=== PATIENT | male | born 1940 | race Caucasian/White ===

== ENCOUNTER 2017-09-20 11:55 | Outpatient (CLI) | payer MEDICARE, OTHER, SELFPAY ==
[2017-09-20 12:24] LABS: Abs Immature Grans 0.02 k/cumm (0.0-0.09); Absolute Basophil Count 0.05 k/cumm (0.0-0.2); Absolute Eosinophil Count 0.03 k/cumm (0.0-0.7); Absolute Lymphocyte Count 1.72 k/cumm (1.2-3.4); Absolute Monocyte Count 1.19 k/cumm (0.11-0.7); Absolute Neutrophil Count 5.34 k/cumm (1.2-6.7); Basophils % 0.6; Eosinophils % 0.4; HCT 42.9 % (40.0-50.0); HGB 14.4 g/dL (13.5-17.5); Immature Grans % 0.2; Lymphocytes % 20.6; Mean Corp. HGB Concentration 33.6 g/dL (32.0-36.0); Mean Corpuscular Hemoglobin 31.8 pg (27.0-33.0); Mean Corpuscular Volume 94.7 fL (80-95); Mean Platelet Volume 9.2 fL (8.0-11.0); Monocytes % 14.3; Neutrophils % 63.9; Platelet Count 299 x1000/uL (130-400); RBC 4.53 m/cumm (4.50-6.00); RBC Distribution Width 16.8 % (11.8-14.1); White Blood Cell Count 8.35 k/cumm (4.4-10.8)
[2017-09-20 12:36] LABS: ALT 23 U/L (12-78); AST 13 U/L (15-37); Albumin 3.5 g/dL (3.4-5.0); Alkaline Phosphatase 108 U/L (46-116); Anion Gap 9.5 mmol/L (3-11); BUN 20 mg/dL (7-18); Bilirubin, Total 0.4 mg/dL (0.2-1.0); CO2 26.5 mmol/L (21.0-32.0); CREATININE 0.96 mg/dL (0.70-1.30); Calcium 8.9 mg/dL (8.5-10.1); Chloride 99 mmol/L (98-107); Glucose 280 mg/dL (70-100); Potassium 4.4 mmol/L (3.5-5.1); Sodium 135 mmol/L (136-145); Total Protein 7.8 g/dL (6.4-8.2)
[2017-10-16 14:58] LABS: Indication for Study See Comments
[2017-10-16 15:01] LABS: BCR-ABL1 p210 FusionTranscript See Comments
[2017-10-16 15:05] LABS: BCR-ABL1 Interpretation See Comments
[2017-10-16 15:07] LABS: Limitations and Disclaimers See Comments
== END 2017-09-20 11:56 ==
PROVIDERS: PCP Internal Medicine; Visit Provider Internal Medicine Hematology & Oncology
DX: C92.10 Chronic myeloid leukemia, BCR/ABL-positive, not having achieved remission (principal)
CPT/HCPCS: 36415; 80053; 81206; 85025

== ENCOUNTER 2017-11-28 13:27 | Outpatient (CLI) | payer MEDICARE, OTHER, SELFPAY ==
[2017-11-28 13:53] LABS: Abs Immature Grans 0.02 k/cumm (0.0-0.09); Absolute Basophil Count 0.02 k/cumm (0.0-0.2); Absolute Eosinophil Count 0.02 k/cumm (0.0-0.7); Absolute Lymphocyte Count 1.73 k/cumm (1.2-3.4); Absolute Monocyte Count 1.45 k/cumm (0.11-0.7); Absolute Neutrophil Count 7.45 k/cumm (1.2-6.7); Basophils % 0.2; Eosinophils % 0.2; HCT 40.3 % (40.0-50.0); HGB 13.1 g/dL (13.5-17.5); Immature Grans % 0.2; Lymphocytes % 16.2; Mean Corp. HGB Concentration 32.5 g/dL (32.0-36.0); Mean Corpuscular Hemoglobin 31.7 pg (27.0-33.0); Mean Corpuscular Volume 97.6 fL (80-95); Mean Platelet Volume 8.9 fL (8.0-11.0); Monocytes % 13.6; Neutrophils % 69.6; Platelet Count 341 x1000/uL (130-400); RBC 4.13 m/cumm (4.50-6.00); RBC Distribution Width 15.1 % (11.8-14.1); White Blood Cell Count 10.69 k/cumm (4.4-10.8)
[2017-11-28 14:04] LABS: ALT 25 U/L (12-78); AST 18 U/L (15-37); Albumin 3.2 g/dL (3.4-5.0); Alkaline Phosphatase 92 U/L (46-116); Anion Gap 9.4 mmol/L (3-11); BUN 18 mg/dL (7-18); Bilirubin, Total 0.5 mg/dL (0.2-1.0); CO2 26.6 mmol/L (21.0-32.0); CREATININE 0.98 mg/dL (0.70-1.30); Calcium 9.2 mg/dL (8.5-10.1); Chloride 99 mmol/L (98-107); Glucose 204 mg/dL (70-100); Sodium 135 mmol/L (136-145); Total Protein 7.7 g/dL (6.4-8.2)
[2017-11-30 15:39] LABS: BCR/ABL1, p210 Result see interpretation; Specimen Type EDTA WHOLE BLOOD
== END 2017-11-28 13:47 ==
PROVIDERS: PCP Internal Medicine; Visit Provider Internal Medicine Hematology & Oncology
DX: C92.10 Chronic myeloid leukemia, BCR/ABL-positive, not having achieved remission (principal)
CPT/HCPCS: 36415; 80053; 81206; 85025

== ENCOUNTER 2018-01-16 13:05 | Outpatient (CLI) | payer MEDICARE, OTHER, SELFPAY ==
[2018-01-16 13:35] LABS: Abs Immature Grans 0.02 k/cumm (0.0-0.09); Absolute Basophil Count 0.04 k/cumm (0.0-0.2); Absolute Eosinophil Count 0.06 k/cumm (0.0-0.7); Absolute Lymphocyte Count 1.65 k/cumm (1.2-3.4); Absolute Monocyte Count 1.21 k/cumm (0.11-0.7); Absolute Neutrophil Count 5.22 k/cumm (1.2-6.7); Basophils % 0.5; Eosinophils % 0.7; HCT 42.1 % (40.0-50.0); HGB 13.6 g/dL (13.5-17.5); Immature Grans % 0.2; Lymphocytes % 20.1; Mean Corp. HGB Concentration 32.3 g/dL (32.0-36.0); Mean Corpuscular Hemoglobin 31.6 pg (27.0-33.0); Mean Corpuscular Volume 97.9 fL (80-95); Mean Platelet Volume 9.2 fL (8.0-11.0); Monocytes % 14.8; Neutrophils % 63.7; Platelet Count 360 x1000/uL (130-400); RBC Distribution Width 15.8 % (11.8-14.1)
[2018-01-16 13:50] LABS: ALT 28 U/L (12-78); AST 17 U/L (15-37); Albumin 3.3 g/dL (3.4-5.0); Alkaline Phosphatase 119 U/L (46-116); Anion Gap 10.7 mmol/L (3-11); BUN 18 mg/dL (7-18); Bilirubin, Total 0.4 mg/dL (0.2-1.0); CO2 26.3 mmol/L (21.0-32.0); CREATININE 0.89 mg/dL (0.70-1.30); Calcium 9.2 mg/dL (8.5-10.1); Chloride 99 mmol/L (98-107); Glucose 268 mg/dL (70-100); Potassium 4.1 mmol/L (3.5-5.1); Sodium 136 mmol/L (136-145); Total Protein 8.1 g/dL (6.4-8.2)
[2018-01-25 10:03] LABS: BCR-ABL1 Interpretation See Comments; BCR-ABL1 p210 FusionTranscript See Comments; Indication for Study See Comments
[2018-01-25 10:05] LABS: Limitations and Disclaimers See Comments
== END 2018-01-16 13:25 ==
PROVIDERS: PCP Internal Medicine; Visit Provider Internal Medicine Hematology & Oncology
DX: C92.10 Chronic myeloid leukemia, BCR/ABL-positive, not having achieved remission (principal)
CPT/HCPCS: 36415; 80053; 81206; 85025

== ENCOUNTER 2018-04-24 10:18 | Outpatient (CLI) | payer MEDICARE, OTHER, SELFPAY ==
[2018-04-24 10:56] LABS: Abs Immature Grans 0.03 k/cumm (0.0-0.09); Absolute Basophil Count 0.03 k/cumm (0.0-0.2); Absolute Eosinophil Count 0.03 k/cumm (0.0-0.7); Absolute Lymphocyte Count 1.62 k/cumm (1.2-3.4); Absolute Monocyte Count 1.18 k/cumm (0.11-0.7); Absolute Neutrophil Count 6.82 k/cumm (1.2-6.7); Basophils % 0.3; Eosinophils % 0.3; HGB 13.5 g/dL (13.5-17.5); Immature Grans % 0.3; Lymphocytes % 16.7; Mean Corp. HGB Concentration 33.8 g/dL (32.0-36.0); Mean Corpuscular Hemoglobin 32.4 pg (27.0-33.0); Mean Corpuscular Volume 95.9 fL (80-95); Mean Platelet Volume 9.5 fL (8.0-11.0); Monocytes % 12.2; Neutrophils % 70.2; Platelet Count 341 x1000/uL (130-400); RBC 4.17 m/cumm (4.50-6.00); RBC Distribution Width 15.7 % (11.8-14.1); White Blood Cell Count 9.71 k/cumm (4.4-10.8)
[2018-04-24 11:01] LABS: ALT 26 U/L (12-78); AST 19 U/L (15-37); Albumin 3.4 g/dL (3.4-5.0); Alkaline Phosphatase 137 U/L (46-116); Anion Gap 7.5 mmol/L (3-11); BUN 20 mg/dL (7-18); Bilirubin, Total 0.4 mg/dL (0.2-1.0); CO2 28.5 mmol/L (21.0-32.0); CREATININE 0.89 mg/dL (0.70-1.30); Chloride 101 mmol/L (98-107); Glucose 228 mg/dL (70-100); Potassium 4.2 mmol/L (3.5-5.1); Sodium 137 mmol/L (136-145); Total Protein 7.7 g/dL (6.4-8.2)
[2018-04-24 11:45] LABS: TSH 3.33 uIU/mL (0.358-3.74)
[2018-04-26 13:05] LABS: BCR/ABL1, p210 Result see interpretation; Specimen Type EDTA WB
== END 2018-04-24 10:38 ==
PROVIDERS: Physician Assistant Medical; PCP Internal Medicine; Visit Provider Internal Medicine Hematology & Oncology
DX: C92.10 Chronic myeloid leukemia, BCR/ABL-positive, not having achieved remission (principal); E03.9 Hypothyroidism, unspecified
CPT/HCPCS: 36415; 80053; 81206; 84443; 85025

== ENCOUNTER 2018-07-25 00:44 | Outpatient (CLI) | payer MEDICARE, OTHER, SELFPAY ==
[2018-07-25 15:33] LABS: CREATININE 0.92 mg/dL (0.70-1.30)
[2018-07-25] MEDS: Omnipaque 350 MG/ML 100 ML BTL IJ (16:04)
--- NOTE | 2018-07-25 16:05 | DI.CT_ITS ---
SYMPTOM/DIAGNOSIS: TONGUE MASS. CT NECK: There are no prior comparison exams. Images were performed from the level of the internal auditory canals through the lung apices after IV contrast. There is an area of encephalomalacia in the right cerebellum which could be secondary to an old infarct. There is also some low density in the right occipital lobe. There is significant artifact due to the patient's dental work obscuring visualization of the tongue. A mass of increased enhancement is visible on the right side of the tongue. The borders are difficult to determine due to adjacent artifact. There is no evidence of adenopathy. No destructive bony lesions are seen. There is plaque at the right common carotid bulb and no significant stenosis. There is intimal thickening along the left common carotid artery and extending in to the internal carotid artery. There is mild stenosis, less than 50%. There is multifocal narrowing along the course of the right vertebral artery. The distal right vertebral artery shows very little contrast. The left vertebral artery is unremarkable. The [place] vasculature appears intact. The parotid and submandibular glands are unremarkable. The thyroid gland appears small and heterogeneous bilaterally No nodules are seen at the upper lobes. There is some intralobular septal thickening seen on the right side as well as some ground glass opacities. The left upper lobe appears clear. IMPRESSION: 1. Right sided tongue mass which is mainly obscured by artifact from dental work. No evidence of adenopathy. 2. 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 3. Increased opacities in the right upper lobe. Clinical correlation is recommended.
== END 2018-07-25 01:04 ==
PROVIDERS: PCP Internal Medicine; Visit Provider Internal Medicine
DX: K14.8 Other diseases of tongue (principal); I63.9 Cerebral infarction, unspecified; R91.8 Other nonspecific abnormal finding of lung field
CPT/HCPCS: 70491; 82565; J3490

== ENCOUNTER 2018-08-14 11:18 | Outpatient (CLI) | payer MEDICARE, OTHER, SELFPAY ==
[2018-08-14 11:47] LABS: Abs Immature Grans 0.03 k/cumm (0.0-0.09); Absolute Basophil Count 0.02 k/cumm (0.0-0.2); Absolute Eosinophil Count 0.04 k/cumm (0.0-0.7); Absolute Lymphocyte Count 1.47 k/cumm (1.2-3.4); Absolute Monocyte Count 1.28 k/cumm (0.11-0.7); Absolute Neutrophil Count 9.33 k/cumm (1.2-6.7); Basophils % 0.2; Eosinophils % 0.3; HCT 42.9 % (40.0-50.0); HGB 14.3 g/dL (13.5-17.5); Immature Grans % 0.2; Lymphocytes % 12.1; Mean Corp. HGB Concentration 33.3 g/dL (32.0-36.0); Mean Corpuscular Volume 99.1 fL (80-95); Mean Platelet Volume 9.3 fL (8.0-11.0); Monocytes % 10.5; Neutrophils % 76.7; Platelet Count 396 x1000/uL (130-400); RBC 4.33 m/cumm (4.50-6.00); White Blood Cell Count 12.17 k/cumm (4.4-10.8)
[2018-08-14 12:09] LABS: ALT 20 U/L (12-78); AST 15 U/L (15-37); Albumin 3.6 g/dL (3.4-5.0); Alkaline Phosphatase 103 U/L (46-116); Anion Gap 10.5 mmol/L (3-11); BUN 16 mg/dL (7-18); Bilirubin, Total 0.6 mg/dL (0.2-1.0); CO2 26.5 mmol/L (21.0-32.0); CREATININE 0.95 mg/dL (0.70-1.30); Calcium 9.5 mg/dL (8.5-10.1); Chloride 101 mmol/L (98-107); Glucose 168 mg/dL (70-100); Potassium 3.7 mmol/L (3.5-5.1); Sodium 138 mmol/L (136-145); Total Protein 8.3 g/dL (6.4-8.2)
[2018-08-30 12:29] LABS: Indication for Study CML
[2018-08-30 12:30] LABS: Specimen Type Peripheral blood
[2018-08-30 12:31] LABS: BCR-ABL1 p210 FusionTranscript See Comments
[2018-08-30 12:32] LABS: Limitations and Disclaimers See Comments
[2018-08-30 12:34] LABS: BCR-ABL1 Interpretation See Comments
== END 2018-08-14 11:38 ==
PROVIDERS: PCP Internal Medicine; Visit Provider Nurse Practitioner Family
DX: C92.10 Chronic myeloid leukemia, BCR/ABL-positive, not having achieved remission (principal)
CPT/HCPCS: 36415; 80053; 81206; 85025